=== PATIENT | female | born 1970 | race African-American/Black ===

== ENCOUNTER 2017-05-03 13:30 | Emergency (ER) | payer OTHER | END 2017-05-03 16:35 | disposition home or self-care (01) | LOC: D.ER 13:30 | DX: R51 Headache (principal); I10 Essential (primary) hypertension ==

== ENCOUNTER 2017-05-28 11:42 | Emergency (ER) | payer OTHER ==
[2017-05-28 12:17] LABS: BASOPHILS 0.2 % (0-2); EOSINOPHILS 0 % (0-7); HEMATOCRIT 38.9 % (36.0-48.0); HEMOGLOBIN 12.8 g/dL (12-16); IMMATURE GRANULOCYTES 0.2 % (0-5); LYMPHOCYTES 19.2 % (15-50); MCH 30.1 pg (26.0-34.0); MCHC 32.9 g/dL (31.0-37.0); MCV 91.5 fL (80.0-100.0); MEAN PLATELET VOLUME 10.3 fL (7.4-10.4); MONOCYTES 7.7 % (2-11); NEUTROPHILS 72.7 % (40-80); PLATELET COUNT 225 10x3/uL (130-400); RBC 4.25 10x6/uL (4.00-5.40); RDW 13.4 % (11.5-14.5); WBC 16.6 10x3/uL (4.8-10.8)
[2017-05-28 12:43] LABS: ALBUMIN 3.2 g/dL (3.4-5.0); ANION GAP 10.1 mmol/L (8-16); BILIRUBIN - TOTAL 1.47 mg/dL (0.2-1.3); CALCIUM 9.1 mg/dL (8.5-10.1); CARBON DIOXIDE 31.1 mmol/L (21.0-32.0); CREATININE - SERUM 1.5 mg/dL (0.6-1.3); POTASSIUM - SERUM 3.2 mmol/L (3.5-5.1); PROTEIN - SERUM 8.9 g/dL (6.4-8.2)
[2017-05-28 12:44] LABS: APPEARANCE HAZY (CLEAR); BILIRUBIN NEGATIVE (NEGATIVE); COLOR DK YELLOW (YELLOW); GLUCOSE NEGATIVE (NEGATIVE); KETONE NEGATIVE (NEGATIVE); LEUKOCYTE ESTERASE TRACE (NEGATIVE); NITRITE NEGATIVE (NEGATIVE); PROTEIN 1+ mg/dL (NEGATIVE); RED CELLS - URINE 0-5 /hpf (0-5); SPECIFIC GRAVITY 1.015 (1.005-1.020); WHITE CELLS - URINE 0-5 /hpf (0-5)
[2017-05-28 12:45] LABS: BACTERIA MODERATE /hpf (NONE SEEN); EPITHELIAL CELLS 0-5 /hpf (0-5); GRANULAR CAST 0-5 /lpf (NONE SEEN); HYALINE CAST 0-5 /lpf (NONE SEEN); MUCUS <1+ /lpf (NONE SEEN)
== END 2017-05-28 15:00 | disposition home or self-care (01) ==
LOC: D.ER 11:42
PROVIDERS: Emergency Medicine
DX: R19.7 Diarrhea, unspecified (principal); K52.9 Noninfective gastroenteritis and colitis, unspecified; R11.10 Vomiting, unspecified; F17.200 Nicotine dependence, unspecified, uncomplicated; I10 Essential (primary) hypertension

== ENCOUNTER 2017-06-30 23:00 | Emergency (ER) | payer OTHER ==
[2017-07-01 00:36] LABS: HEMATOCRIT 37.7 % (36.0-48.0); HEMOGLOBIN 12.6 g/dL (12-16); LYMPHOCYTES 13.1 % (15-50); MCH 29.6 pg (26.0-34.0); MCHC 33.4 g/dL (31.0-37.0); MCV 88.5 fL (80.0-100.0); MEAN PLATELET VOLUME 9.6 fL (7.4-10.4); NEUTROPHILS 84.1 % (40-80); RBC 4.26 10x6/uL (4.00-5.40); RDW 13.2 % (11.5-14.5); WBC 18.5 10x3/uL (4.8-10.8)
[2017-07-01 00:39] LABS: PLATELET COUNT 287 10x3/uL (130-400)
[2017-07-01 00:49] LABS: ALBUMIN 3.4 g/dL (3.4-5.0); ANION GAP 9.9 mmol/L (8-16); BILIRUBIN - TOTAL 0.98 mg/dL (0.2-1.3); CALCIUM 8.6 mg/dL (8.5-10.1); CARBON DIOXIDE 29.9 mmol/L (21.0-32.0); CREATININE - SERUM 1.2 mg/dL (0.6-1.3); POTASSIUM - SERUM 3.8 mmol/L (3.5-5.1); PROTEIN - SERUM 8.5 g/dL (6.4-8.2)
[2017-07-01 00:53] LABS: APPEARANCE CLEAR (CLEAR); COLOR YELLOW (YELLOW)
[2017-07-01 00:54] LABS: BILIRUBIN NEGATIVE (NEGATIVE); GLUCOSE NEGATIVE (NEGATIVE); KETONE NEGATIVE (NEGATIVE); LEUKOCYTE ESTERASE TRACE (NEGATIVE); NITRITE NEGATIVE (NEGATIVE); PROTEIN 2+ mg/dL (NEGATIVE); SPECIFIC GRAVITY 1.005 (1.005-1.020); UROBILINOGEN NORMAL (NORMAL)
[2017-07-01 00:55] LABS: BACTERIA FEW /hpf (NONE SEEN); EPITHELIAL CELLS 0-5 /hpf (0-5); RED CELLS - URINE 0-5 /hpf (0-5); WHITE CELLS - URINE 0-5 /hpf (0-5)
== END 2017-07-01 01:50 | disposition home or self-care (01) ==
LOC: D.ER 23:00
PROVIDERS: Physician Assistant
DX: R11.2 Nausea with vomiting, unspecified (principal); R51 Headache; I10 Essential (primary) hypertension

== ENCOUNTER → 2017-07-19 16:49 | Outpatient (CLI) | payer OTHER | END | disposition home or self-care (01) | LOC: D.RAD 16:49 | DX: K59.00 Constipation, unspecified (principal) ==

== ENCOUNTER 2018-02-12 17:06 | Emergency (ER) | payer OTHER ==
[2018-02-12 17:49] LABS: BASOPHILS 0.2 % (0-2); EOSINOPHILS 0.8 % (0-7); HEMOGLOBIN 12.4 g/dL (12-16); IMMATURE GRANULOCYTES 0.1 % (0-5); LYMPHOCYTES 26.5 % (15-50); MCH 30.5 pg (26.0-34.0); MCHC 32.6 g/dL (31.0-37.0); MCV 93.4 fL (80.0-100.0); MEAN PLATELET VOLUME 10.2 fL (7.4-10.4); MONOCYTES 8.6 % (2-11); NEUTROPHILS 63.8 % (40-80); PLATELET COUNT 231 10x3/uL (130-400); RBC 4.07 10x6/uL (4.00-5.40); RDW 13.1 % (11.5-14.5); WBC 8.5 10x3/uL (4.8-10.8)
[2018-02-12 17:59] LABS: APPEARANCE HAZY (CLEAR); COLOR YELLOW (YELLOW); NITRITE NEGATIVE (NEGATIVE)
[2018-02-12 18:00] LABS: BILIRUBIN NEGATIVE (NEGATIVE); GLUCOSE NEGATIVE (NEGATIVE); KETONE NEGATIVE (NEGATIVE); PROTEIN TRACE mg/dL (NEGATIVE); UROBILINOGEN NORMAL (NORMAL)
[2018-02-12 18:04] LABS: BACTERIA FEW /hpf (NONE SEEN); EPITHELIAL CELLS 0-5 /hpf (0-5); WHITE CELLS - URINE 0-5 /hpf (0-5)
[2018-02-12 18:05] LABS: ALBUMIN 3.5 g/dL (3.4-5.0); ANION GAP 11.8 mmol/L (8-16); BILIRUBIN - TOTAL 0.91 mg/dL (0.2-1.3); CALCIUM 8.9 mg/dL (8.5-10.1); CARBON DIOXIDE 26.9 mmol/L (21.0-32.0); CREATININE - SERUM 1.1 mg/dL (0.6-1.3); POTASSIUM - SERUM 3.7 mmol/L (3.5-5.1); PROTEIN - SERUM 8.6 g/dL (6.4-8.2)
== END 2018-02-12 19:35 | disposition home or self-care (01) ==
LOC: D.ER 17:06
PROVIDERS: Family Medicine
DX: J06.9 Acute upper respiratory infection, unspecified (principal); J20.9 Acute bronchitis, unspecified; I10 Essential (primary) hypertension

== ENCOUNTER 2018-07-13 10:43 | Outpatient (CLI) | payer OTHER ==
[~2018-07-13] VITALS: Ht 167.6 cm; Wt 143.2 kg
--- NOTE | ~2018-07-13 | OP ---
PATIENT NAME: HUSSEIN SOTO MEDICAL RECORD: [id number] :66 LOCATION:D.CAT ADMISSION DATE: SURGEON: LIBAN PINZON MD DATE OF OPERATION: 07/13/2018 PROCEDURES: Left heart catheterization, selective coronary angiography, plus renal arteriogram, initially right radial approach; however, switched to right femoral artery approach secondary to inability to engage coronary system. FINDINGS: Left ventriculography in 30-degree WILSON view: Hyperdynamic ventricle. Overall LV function 60% or better. CORONARY ANATOMY: LEFT MAIN: Left main is free of disease. LAD: Free of disease as is the diagonal system. CIRCUMFLEX: Free of disease in the marginal system. RIGHT CORONARY ARTERY: Dominant artery, gives rise to PDA, free of disease. DESCRIPTION OF PROCEDURE: The JR catheter was then replaced into the descending aorta. Selective renal arteriogram was performed. 1. The right renal artery was selectively engaged. This shows a smooth-walled vessel, free of significant disease. 2. The left renal artery was selectively engaged. It showed no evidence of significant stenosis. IMPRESSION: Normal renal arteriography. Normal coronary anatomy. TRANSINT:[id number] Voice Confirmation ID: [id number] DOCUMENT ID: [id number] LIBAN PINZON MD at 1449 CC: [id number] DICTATION DATE: 07/13/18 1403 BORDER MEASURER AND CUTTER: 07/13/18 1429 DEP CLI 07/13/18 [id number] [place] [address]
--- NOTE | ~2018-07-13 | HEMODYNAMI ---
PATIENT:HUSSEIN SOTO MEDICAL RECORD: [id number] : 66 LOCATION:DRAGHU ADMISSION DATE: 07/13/18 Generatedon:07/13/201814:04 Patient name: HUSSEIN SOTO Patient #: [id number] SSN: : 1970 Date of study: 07/13/2018 Page: Of Hemodynamic Procedure Report Patient Data Patient Demographics Procedure consent was obtained First Name: HUSSEIN Gender: Female Last Name: BRITTANY : 1970 Patient #: [id number] Age: 47 year(s) Race: Black Additional ID: [id number] Contact details Address: [place] [address] State: [place] City: [place] Zip code: [address] Past Medical History Allergies: No known allergies Admission Admission Data Admission Date: 07/13/2018 Admission Time: 10:43 Lab Results Lab Result Date: 07/13/2018 Lab Result Time: 0:00 Biochemistry Name Units Result Min Max BUN mg/dl 15 --(--*-)-- 7 18 Creatinine mg/dl 1 --(--*-)-- 0.6 1.3 CBC Name Units Result Min Max Hemoglobin g/dl 13 -*(----)-- 13.5 17.5 Procedure Procedure Types Cath Procedure Diagnostic Procedure [facility] w/Coronaries Sedation Charges Moderate Sedation up to 30 minutes Peripheral Cath Diagnostic Procedure Cath Peripheral Renal Arteriogram Procedure Description Procedure Date Procedure Date: 07/13/2018 Procedure Start Time: 13:25 Procedure End Time: 14:04 Procedure Staff Name Function Axel Duncan MD Performing Physician Cyn Lynn RT Monitor Hermila Gracia RT Scrub Susy Begum RN Nurse Harsh Pavon RN Merchandise Manager Procedure Data Cath Procedure Fluoroscopy Diagnostic fluoroscopy Total fluoroscopy Time: 10 time: 10 min min Diagnostic fluoroscopy Total fluoroscopy dose: dose: 1429 mGy 1429 mGy Contrast Material Contrast Material Type Amount (ml) Isovue 300 165 Entry Location Entry Primary Successful Side Size Upsize Upsize Entry Closure Succes sful Closure Location (Fr) 1 (Fr) 2 (Fr) Remarks Device Remarks Radial Right 6 Fr artery Short Femoral Right 5 Fr Exoseal artery Estimated blood loss: 5 ml Diagnostic catheters Device Type Used For End Catheter Placement DIAGNOSTIC [place] 110cm 5 Procedure Fr catheter (165218) DIAGNOSTIC AR MOD 5Fr Procedure Catheter ([id number]) DIAGNOSTIC JB3 4Fr Procedure catheter (367151) DIAGNOSTIC JL 5 5Fr Procedure catheter ([id number]) DIAGNOSTIC AR MOD 5Fr Procedure Catheter (327985C) DIAGNOSTIC Pigtail 5Fr Procedure catheter (838505H) Procedure Complications No complications Procedure Medications Medication Administration Route Dosage Oxygen etCO2 Nasal cannula 2 l/min Lidocaine 2% added to field 20 Heparin Flush Bag added to field 2 bags (1000units/500ml NS) 0.9% NaCl I.V. 100 ml/hr Versed I.V. 1 mg Fentanyl I.V. 50 mcg Radial Cocktail I.A. 1 syringe (Verapomil 2mg/Nitro 400mcg/Heparin 1500units) Versed I.V. 1 mg Fentanyl I.V. 50 mcg Lopressor I.V. 5 mg Versed I.V. 1 mg Fentanyl I.V. 50 mcg Vasotec 2.5 mg Versed I.V. 1 mg Fentanyl I.V. 50 mcg Lopressor I.V. 5 mg Lopressor I.V. 5 mg Hemodynamics Rest HGB: 13 (g/dl) Heart Rate: 70 (bpm) Pressure Samples Time Site Value (mmHg) Purpose Heart Use Rate(bpm) 13:51 LV 199/30,40 Snapshot 69 13:52 AO 190/130(159) Pullback 77 13:52 LV 164/12,18 Pullback 77 Gradients Valve Time Site 1 Site 2 Mean SEP/DFP Peak To Heart Use (mmHg) (sec/min) Peak Rate (mmHg) (bpm) Aortic 13:52 LV AO 0 77 164/12,18 190/130(159) Calculations Valve P-P Mean Valve Index Valve Source Name Gradient Area Flow (cm2) Aortic 0 0 Snapshots Pre Cath Intra NCS Post Cath Vital Signs Time Heart Resp SPO2 etCO2 NIBP (mmHg) Rhythm Pain Sedation Rate (ipm) (%) (mmHg) Status Level (bpm) 13:15:58 73 15 98 36.1 Aborted NSR 0 (11) 10(A) , No pain 13:16:51 74 14 100 40.6 223/155(219) NSR 0 (11) 10(A) , No pain 13:24:36 75 13 97 55 209/146(193) NSR 0 (11) 10(A) , No pain 13:29:07 80 41 97 45.9 184/133(166) NSR 0 (11) 9(A) , No pain 13:33:39 75 15 96 55 203/159(179) NSR 0 (11) 9(A) , No pain 13:38:16 75 15 98 47.4 214/144(203) NSR 0 (11) 9(A) , No pain 13:42:50 72 13 98 46.7 205/139(200) NSR 0 (11) 9(A) , No pain 13:51:04 78 12 95 60.9 182/132(180) NSR 0 (11) 9(A) , No pain 13:55:36 76 15 96 58 185/152(175) NSR 0 (11) 9(A) , No pain 14:00:06 75 18 97 54.9 201/144(183) NSR 0 (11) 10(A) , No pain 14:04:39 75 7 98 55.7 192/135(173) NSR 0 (11) 10(A) , No pain Medications Time Medication Route Dose Verified Delivered Reason Notes Effectiveness by by 13:20:20 Oxygen etCO2 2 l/min Axel Jain used for Nasal St Sonido Begum RN procedure cannula 13:20:27 Lidocaine 2% added 20ml Axel Reyna for local to vial [facility] anesthetic field MD LUKE 13:20:33 Heparin Flush added 2 bags Axel Reyna used for Bag to [facility] procedure (1000units/500ml field MD LUKE NS) 13:20:42 0.9% NaCl I.V. 100 Axel Jain Per ml/hr St Sonido Begum RN physician 13:21:01 Versed I.V. 1 mg Axel Pruittie for sedation St Sonido Begum RN, MD 13:21:09 Fentanyl I.V. 50 mcg Axel Jain for sedation St Sonido Begum RN, MD 13:25:40 Versed I.V. 1 mg Axel Pruittie for sedation St Sonido Begum RN, MD 13:25:43 Fentanyl I.V. 50 mcg Axel Buffie for sedation St Sonido Begum RN, MD 13:27:16 Radial Cocktail I.A. 1 Axel Buffie for (Verapomil syringe St Sonido Begum RN vasodilation 2mg/Nitro MD 400mcg/Heparin 1500units) 13:28:01 Lopressor I.V. [address] Sonido davis MD 13:34:00 Versed I.V. 1 mg Xael Buffie for sedation St Sonido Begum RN, MD 13:34:04 Fentanyl I.V. 50 mcg Axel Buffie for sedation St Sonido Begum RN, MD 13:39:49 Vasotec IV 2.5 mg Ax[address] Per [facility] Sonido davis MD 13:44:34 Versed I.V. 1 mg Axel Buffie for sedation St Sonido Begum RN, MD 13:44:39 Fentanyl I.V. 50 mcg Axel Buffie for sedation St Sonido Begum RN, MD 13:53:17 Lopressor I.V. 5 mg [address] Per [facility] Sonido davis MD 13:59:26 Lopressor I.V. 5 mg [address] Per [facility] Sonido davis MD Procedure Log Time Note 13:02:08 Harsh Pavon RN sent for patient. Start room use. 13:02:09 Time tracking: Regular hours (M-F 7:00 - 5:00) 13:02:13 Plan of Care:Hemodynamics will remain stable., Cardiac rhythm will remain stable., Comfort level will be maintained., Respiratory function will remain adequate., Patient/ family verbilizes understanding of procedure., Procedure tolerated without complication., Recovers from procedure without complications.. 13:02:14 Signed procedure consent form obtained from patient. 13:03:08 Patient allergic to No known allergies 13:04:38 Patient received from Pre/Post Procedure Room to CCL 2 Alert and oriented. Tansferred to table in Supine position. 13:04:39 Warm blankets applied, and gopi hugger turned on for patient comfort. 13:04:39 Correct patient and procedure confirmed by team. 13:04:39 ECG and BP/O2 sat monitors applied to patient. 13:15:27 Vital chart was started 13:15:33 Baseline sample Acquired. 13:15:41 Rhythm: sinus rhythm 13:15:42 Full Disclosure recording started 13:15:50 Pre-procedure instructions explained to patient. 13:15:50 Pre-op teaching completed and patient verbalized understanding. 13:15:52 Family in patients room. 13:16:07 Patient NPO since Midnight. 13:16:09 Is the patient allergic to Iodine/contrast media? No. 13:16:11 Is patient on blood thinner?No 13:16:12 Patient diabetic? No. 13:16:56 Patient not . Patient has had hysterectomy. 13:16:58 Previous problem with sedation/anesthesia? No ? 13:16:59 Snore? Yes 13:17:00 Sleep apnea? Yes 13:17:01 Deviated septum? No 13:17:01 Opens mouth fully? Yes 13:17:02 Sticks out tongue? Yes 13:17:04 Airway obstruction? No ? 13:17:11 Dentures? Yes PARTIAL OUT 13:17:14 Modified Arvind's test Ulnar < 7 seconds 13:17:17 Patient pain scale 0/10 ?. 13:17:21 IV patent on arrival in left hand with 0.9% NaCl at [facility]. 13:17:45 Lab Result : Creatinine 1 mg/dl 13:17:45 Lab Result : BUN 15 mg/dl 13:17:45 Lab Result : Hemoglobin 13 g/dl 13:17:48 Lab results completed and on chart. 13:17:50 Right Radial & Right Groin area was prepped with chlora-prep and draped in sterile fashion 13:17:52 Alarms reviewed by R. N. 13:17:52 Sharps counted by scrub and verified by R.N. 13:17:55 Use device set Radial Dx or PCI 13:17:56 ACIST Syringe (85431) opened to sterile field. 13:17:57 Bag Decanter (2002) opened to sterile field. 13:17:58 ACIST Hand Control (30763) opened to sterile field. 13:17:58 ACIST Manifold (60507) opened to sterile field. 13:17:59 Tegaderm 4 x 4 (1626W) opened to sterile field. 13:18:01 Medline Cath Pack ([id number]) opened to sterile field. 13:18:01 DIAGNOSTIC WIRE .035 260cm J wire (028639) opened to sterile field. 13:18:02 MBrace Wrist Support ([id number]) opened to sterile field. 13:18:03 SHEATH 6Fr Prelude Radial ([id number]) opened to sterile field. 13:18:42 Zero performed for pressure channel P1 13:18:49 --------ALL STOP TIME OUT------ 13:18:49 Final Timeout: patient, procedure, and site verified with staff and physician. All members of the team are in agreement. 13:18:50 Right Radial & Right Groin site verified by team. 13:18:53 Physical assessment completed. ASA score P 2 - A patient with mild systemic disease as per Axel Duncan MD. 13:18:56 Sedation plan: IV Moderate Sedation Medication:Versed, Fentanyl 13:20:20 Oxygen 2 l/min etCO2 Nasal cannula was administered by Susy Begum RN; used for procedure; 13:20:27 Lidocaine 2% 20ml vial added to field was administered by Axel Duncan MD; for local anesthetic; 13:20:33 Heparin Flush Bag (1000units/500ml NS) 2 bags added to field was administered by Axel Duncan MD; used for procedure; 13:20:42 0.9% NaCl 100 ml/hr I.V. was administered by Susy Begum RN; Per physician; 13:21:01 Versed 1 mg I.V. was administered by Susy Begum RN; for sedation; 13:21:09 Fentanyl 50 mcg I.V. was administered by Susy Begum RN; for sedation; 13:21:14 Zero performed for pressure channel P1 13:24:37 Procedure started. 13:24:54 H&P Date Dictated: 07/13/2018 Within 30 days and on chart., H&P Addendum completed by physician on day of procedure. (MUST COMPLETE FOR ALL OUTPATIENTS). 13:25:26 Local anesthetic to right radial artery with Lidocaine 2% by Axel Duncan MD.INITIAL ACCESS ONLY 13:25:40 Versed 1 mg I.V. was administered by Susy Begum RN; for sedation; 13:25:43 Fentanyl 50 mcg I.V. was administered by Susy Begum RN; for sedation; 13:26:58 A 6 Fr Short sheath was inserted into the Right Radial artery 13:27:05 A DIAGNOSTIC [place] 110cm 5 Fr catheter (389298) was advanced over the wire and used for Procedure. 13:27:16 Radial Cocktail (Verapomil 2mg/Nitro 400mcg/Heparin 1500units) 1 syringe I.A. was administered by Susy Begum RN; for vasodilation; 13:28:01 Lopressor 5 mg I.V. was administered by Susy Begum RN; Per physician; 13:29:37 UNABLE TO ENGAGE CORONARY 13:29:41 Catheter removed. 13:30:28 Zero performed for pressure channel P1 13:31:21 A DIAGNOSTIC AR MOD 5Fr Catheter (542161W) was advanced over the wire and used for Procedure. 13:32:16 RCA angiography performed. 13:32:31 Catheter exchanged over wire. 13:33:20 GUIDE 6FR EBU 3.75 catheter ([id number]) opened to sterile field. 13:33:45 6 Fr EBU 3.75 guide catheter was inserted over the wire 13:34:00 Versed 1 mg I.V. was administered by Susy Begum RN; for sedation; 13:34:04 Fentanyl 50 mcg I.V. was administered by Susy Begum RN; for sedation; 13:35:09 UNABLE TO ENGAGE LT.CORONARY 13:35:55 A DIAGNOSTIC JB3 4Fr catheter (895492) was advanced over the wire and used for Procedure. 13:36:42 Catheter removed. 13:37:28 UNABLE TO ENGAGE LT. CORONARY 13:37:39 Catheter removed. 13:38:20 GUIDE 6FR EBU 4.0 guide catheter ([id number]) opened to sterile field. 13:38:32 6 Fr EBU 4 guide catheter was inserted over the wire 13:39:49 Vasotec 2.5 mg IV was administered by Susy Begum RN; Per physician; 13:39:52 UNABLE TO ENAGE LT. CORONARY 13:40:02 Guide catheter removed. 13:40:13 CONTINUE TO GROIN APPROACH 13:40:25 SHEATH 5FR [place] (NBR190) opened to sterile field. 13:40:34 Local anesthetic to right femoral artery with Lidocaine 2% by Axel Duncan MD.ADDITIONAL ACCESS 13:41:25 A 5 Fr sheath was inserted into the Right Femoral artery 13:44:34 Versed 1 mg I.V. was administered by Susy Begum RN; for sedation; 13:44:39 Fentanyl 50 mcg I.V. was administered by Susy Begum RN; for sedation; 13:44:59 A DIAGNOSTIC JL 5 5Fr catheter (930960K) was advanced over the wire and used for Procedure. 13:45:22 LCA angiography performed. 13:45:42 Catheter removed. 13:46:26 A DIAGNOSTIC AR MOD 5Fr Catheter (578303V) was advanced over the wire and used for Procedure. 13:48:47 Left renal angiography performed. 13:50:04 Right renal angiography performed. 13:50:07 Catheter removed. 13:50:13 A DIAGNOSTIC Pigtail 5Fr catheter ([id number]) was advanced over the wire and used for Procedure. 13:50:43 LV gram done using WILSON 13:50:52 Injector settings: Ml/sec: 10, Volume: 20, 13:51:37 LV hemodynamics recorded. 13:52:06 EF : 55 % 13:52:08 Catheter removed. 13:52:20 EXOSEAL 5Fr (EX500) opened to sterile field. 13:52:25 TR BAND Standard ([id number]) opened to sterile field. 13:52:43 Sheath removed intact; hemostasis achieved with Exoseal to the Right Femoral artery. 13:53:05 Procedure ended.(Physican Out) 13:53:17 Lopressor 5 mg I.V. was administered by Susy Begum RN; Per physician; 13:54:02 Fluoroscopy time 10.00 minutes. 13:54:07 Fluoroscopy dose: 1429 mGy 13:54:07 Flurop Dose total: 1429 13:54:18 Contrast amount:Isovue 300 165ml. 13:54:19 Sharps counted by scrub and verified by R.N. 13:54:30 Post-op/insertion site Right Femoral artery dressed using a 4 x 4 and Tegaderm. 13:54:36 Post right femoral artery:stable, soft, clean and dry 13:55:06 Post-procedure physical assessment completed. ASA score P 2 - A patient with mild systemic disease as per Axel Duncan MD. 13:58:19 Post procedure rhythm: sinus rhythm 13:58:22 Estimated blood loss: 5 ml 13:58:23 Post procedure instruction explained to patient.Patient verbalizes understanding. 13:58:24 Patient needs reinforcement of post procedure teaching. 13:59:26 Lopressor 5 mg I.V. was administered by Susy Begum RN; Per physician; 14:00:08 Procedure type changed to Cath procedure, Diagnostic procedure, LHC, LHC w/Coronaries, Sedation Charges, Moderate Sedation up to 30 minutes, Peripheral Cath Diagnostic Procedure, Cath Peripheral, Renal Arteriogram 14:02:45 Procedure and supply charges have been captured, reviewed, submitted and are correct. 14:02:49 Procedure Complication : No complications 14:04:25 Vital chart was stopped 14:04:25 See physician's report for complete and final results. 14:04:27 Report given to Pre/Post Procedure Room. 14:04:30 Patient transfered to Pre/Post Procedure Room with Bed. 14:04:31 Procedure ended. 14:04:31 Full Disclosure recording stopped 14:04:35 End room use (Document Last) Device Usage Item Name Manufacture Quantity Catalog Number Hospital Part Current M inimal Lot# / Charge Number Stock Stock Serial# Code ACIST Syringe Acist 1 60210 916286 809183 720289 2 0 (83341) Medical Systems SofTech Bag Decanter Microtek 1 2001S 253864 54735 010594 5 (2001S) Medical Inc. ACIST Hand Acist 1 51845 566972 585326 991126 5 Control (64464) Medical Systems Inc ACIST Manifold Acist 1 98865 124015 060869 945806 5 (58587) Medical Systems Inc Tegaderm 4 x 4 3M 1 1626W 241472 981078 310054 5 (1626W) Medline Cath Cardinal 1 [id number] 496179 00129 403447 5 Pack Health ([id number]) DIAGNOSTIC WIRE St Jason 1 918491 368132 839096 107573 3 0 .035 260cm J wire (193641) MBrace Wrist Advanced 1 140-0250-00 448748 96658 322519 5 Support Vascular ([id number]) Dynamics SHEATH 6Fr Merit 1 [id number] 513955 414972 938737 5 Prelude Radial Medical ([id number]) DIAGNOSTIC Terumo 1 17-9735 836171 755722 942449 5 [place] 110cm 5 Fr catheter (289206) DIAGNOSTIC AR Cardinal 1 [id number] 966597 251531 992960 1 5 MOD 5Fr Health Catheter (332363P) GUIDE 6FR EBU Medtronic 1 [id number] 429018 16305 241600 1 3.75 catheter ([id number]) DIAGNOSTIC JB3 Cardinal 1 532-438 707239 979760 280120 5 4Fr catheter Health (215363) GUIDE 6FR EBU Medtronic 1 [id number] 446583 57194 524402 1 4.0 guide catheter ([id number]) SHEATH 5FR Terumo 1 FND697 920784 426232 277322 4 0 [place] (HRK274) DIAGNOSTIC JL 5 Cardinal 1 109499C 759087 512381 907682 5 5Fr catheter Health (249245U) DIAGNOSTIC Cardinal 1 [id number] 166019 699248 587277 5 Pigtail 5Fr Health catheter (794204C) EXOSEAL 5Fr Cardinal 1 EX500 042776 252562 981477 1 0 (EX500) Health TR BAND Terumo 1 [id number] 760090 360170 732061 4 0 Standard ([id number]) Signature Audit [place] Stage Time Signature Unsigned Intra-Procedure 07/13/2018 Cyn Lynn 2:04:50 PM RT(R) Signatures Monitor : Cyn Lynn Signature : RT Date : Time : [id number] [place] [address]
--- NOTE | ~2018-07-13 | HP ---
PATIENT: HUSSEIN SOTO MEDICAL RECORD: [id number] ACCOUNT: [id number] LOCATION:NILDA : 66 ADMISSION DATE: 07/13/18 HISTORY AND PHYSICAL EXAMINATION HISTORY OF PRESENT ILLNESS: A 47-year-old lady with history of hypertension, having intermittent chest tightness and pressure with exertion, found to have abnormal ECG with ST-T wave changes inferolaterally. She underwent Cardiolite testing showed reversible ischemia in the anterior segments brought to the labor operator for angiography, intervention based as needed. PAST MEDICAL HISTORY: Includes history of hypertension. MEDICATIONS: Include Carvedilol 6.25 every day, Crestor b.i.d., hydralazine 50 four times a day, lisinopril 40 every day, nifedipine 60 every day. PHYSICAL EXAMINATION: GENERAL: A pleasant middle-aged female in no acute distress. HEENT: Normocephalic and atraumatic. NECK: No JVD or bruit. HEART: Regular. LUNGS: Lynn clear. ABDOMEN: Soft and nontender. EXTREMITIES: Pulses 2+. No edema. ECG is abnormal as described above. PLAN: Diagnostic coronary angiography, intervention based on above. TRANSINT:[id number] Voice Confirmation ID: [id number] DOCUMENT ID: [id number] LIBAN PINZON MD at 1449 CC: [id number] DICTATION DATE: 07/13/18 1317 LIQUEFIED NATURAL GAS OPERATOR: 07/13/18 1347 DEP CLI 07/13/[address] [address]
[2018-07-13 11:35] VITALS: BP 203/129; Ht 167.6 cm; Wt 143.2 kg
[2018-07-13] MEDS ORDERED: NIFEDIPINE ER60 MG PO (11:43)
[2018-07-13] MEDS ORDERED: COREG6.25 MG PO (11:43)
[2018-07-13] MEDS ORDERED: HYDRALAZINE HCL50 MG PO (11:43)
[2018-07-13] MEDS ORDERED: ZESTRIL40 MG PO (11:44)
[2018-07-13] MEDS ORDERED: CELEXA40 MG PO (11:44)
[2018-07-13 11:50] LABS: BASOPHILS 0.3 % (0-2); EOSINOPHILS 1.7 % (0-7); HEMATOCRIT 39.1 % (36.0-48.0); IMMATURE GRANULOCYTES 0.2 % (0-5); LYMPHOCYTES 41.7 % (15-50); MCH 30.7 pg (26.0-34.0); MCHC 33.2 g/dL (31.0-37.0); MCV 92.2 fL (80.0-100.0); MEAN PLATELET VOLUME 10.5 fL (7.4-10.4); MONOCYTES 4.7 % (2-11); NEUTROPHILS 51.4 % (40-80); PLATELET COUNT 237 10x3/uL (130-400); RBC 4.24 10x6/uL (4.00-5.40); RDW 13.5 % (11.5-14.5); WBC 9.6 10x3/uL (4.8-10.8)
[2018-07-13 12:01] LABS: HCG SERUM NEGATIVE (NEGATIVE)
[2018-07-13 12:03] LABS: ANION GAP 7.1 mmol/L (8-16); CALCIUM 8.8 mg/dL (8.5-10.1); CARBON DIOXIDE 31.8 mmol/L (21.0-32.0); POTASSIUM - SERUM 3.9 mmol/L (3.5-5.1)
[2018-07-13] MEDS ORDERED: HYDROCHLOROTHIA50 MG PO (14:21)
== END 2018-07-13 17:18 ==
LOC: D.CATH 10:43
PROVIDERS: Internal Medicine Interventional Cardiology
DX: R07.89 Other chest pain (principal); I10 Essential (primary) hypertension; Z01.812 Encounter for preprocedural laboratory examination; Z79.899 Other long term (current) drug therapy

== ENCOUNTER 2018-09-05 08:07 | Emergency (ER) | payer OTHER ==
[~2018-09-05] VITALS: Ht 167.6 cm; Wt 143.2 kg
[~2018-09-05 08:07] MED LIST: CELEXA40 MG PO; COREG6.25 MG PO; HYDRALAZINE HCL50 MG PO; HYDROCHLOROTHIA50 MG PO; NIFEDIPINE ER60 MG PO; ZESTRIL40 MG PO
[2018-09-05 08:18] VITALS: Ht 167.6 cm; Wt 143.2 kg
[2018-09-05] MEDS ORDERED: NORCO 7.5/325 T1 TA1 PO (08:55)
[2018-09-05 10:14] VITALS: BP 186/103
== END 2018-09-05 10:15 | disposition home or self-care (01) ==
LOC: D.ER 08:07
DX: M54.16 Radiculopathy, lumbar region (principal); I10 Essential (primary) hypertension

== ENCOUNTER 2019-04-13 16:31 | Emergency (ER) | payer OTHER ==
[~2019-04-13] VITALS: Ht 167.6 cm; Wt 145.5 kg
[~2019-04-13 16:31] MED LIST changes: +NORCO 7.5/325 T1 TA1 PO
[2019-04-13 16:40] VITALS: Ht 167.6 cm; Wt 145.5 kg
[2019-04-13] MEDS ORDERED: PREVACID15 MG PO (16:49)
[2019-04-13 17:25] LABS: BASOPHILS 0.3 % (0-2); EOSINOPHILS 1.2 % (0-7); HEMATOCRIT 40.4 % (36.0-48.0); HEMOGLOBIN 13.4 g/dL (12-16); IMMATURE GRANULOCYTES 0.2 % (0-5); LYMPHOCYTES 38.2 % (15-50); MCH 30.3 pg (26.0-34.0); MCHC 33.2 g/dL (31.0-37.0); MCV 91.4 fL (80.0-100.0); MEAN PLATELET VOLUME 10.6 fL (7.4-10.4); MONOCYTES 5.2 % (2-11); NEUTROPHILS 54.9 % (40-80); PLATELET COUNT 250 10x3/uL (130-400); RBC 4.42 10x6/uL (4.00-5.40); RDW 13.4 % (11.5-14.5); WBC 10.5 10x3/uL (4.8-10.8)
[2019-04-13 17:54] LABS: ALBUMIN 3.6 g/dL (3.4-5.0); ALKALINE PHOSPHATASE 130 U/L (46-116); ALT (SGPT) 27 U/L (10-68); APTT 27.1 SECONDS (22.8-39.4); BILIRUBIN - TOTAL 0.62 mg/dL (0.2-1.3); CALC OSMOLALITY 283 mosm/kg (275-300); CALCIUM 9.1 mg/dL (8.5-10.1); CARBON DIOXIDE 28.9 mmol/L (21.0-32.0); CHLORIDE - SERUM 105 mmol/L (98-107); GLUCOSE 97 mg/dL (74-106); INR 1.01 (0.85-1.17); POTASSIUM - SERUM 3.8 mmol/L (3.5-5.1); PROTEIN - SERUM 8.3 g/dL (6.4-8.2); PROTIME 12.8 SECONDS (11.6-15.0); SODIUM 142 mmol/L (136-145); UREA NITROGEN 16 mg/dL (7-18); eGFR NON AFRICAN AMERICAN 62 mL/min (90-120)
[2019-04-13 18:05] LABS: CKMB 1.3 U/L (0.0-3.6); CREATINE KINASE 315 UL (21-215)
[2019-04-13 18:06] LABS: TROPONIN-I < 0.017 ng/mL (0.000-0.060)
[2019-04-13] MEDS ORDERED: NORVASC5 MG PO (18:38)
[2019-04-13 19:07] VITALS: BP 183/97
== END 2019-04-13 19:05 | disposition home or self-care (01) ==
LOC: D.ER 16:31
PROVIDERS: Family Medicine
DX: R51 Headache (principal); I10 Essential (primary) hypertension; R07.9 Chest pain, unspecified

== ENCOUNTER 2019-09-04 08:00 | Outpatient (CLI) | payer OTHER ==
[2019-04-13 16:40] VITALS: BMI 51.7
[~2019-09-04 08:00] MED LIST changes: +NORVASC5 MG PO; +PREVACID15 MG PO
== END 2019-09-04 23:59 | disposition home or self-care (01) ==
LOC: D.MAMMO 08:00
PROVIDERS: ATTEND Family Medicine
DX: Z12.31 Encounter for screening mammogram for malignant neoplasm of breast (principal)

== ENCOUNTER 2021-04-02 12:36 | Observation (INO) | payer OTHER ==
[~2021-04-02] VITALS: Ht 165.1 cm; Wt 143.2 kg
[2021-04-02] VITALS (8 sets, daily range): BP systolic 167–191; BP diastolic 95–129; Ht 165.1 cm; Wt 143.2 kg
--- NOTE | 2021-04-02 13:29 | NUR ---
PT STATES IS UNDER A TREMENDOUS AMOUNT OF STRESS AND TOOK A XANAX THIS AM THAT WASNT PRESCRIBED TO HER. PT ALSO STATES HAS BEEN PRESCRIBED BP MEDS IN THE PAST BUT STOPPED TAKING THEM APPOXIMATELY 1 YEAR AGO.
[2021-04-02 13:36] LABS: BASOPHILS 0.3 % (0-2); EOSINOPHILS 1.2 % (0-7); HEMATOCRIT 41.2 % (36.0-48.0); HEMOGLOBIN 13.3 g/dL (12-16); IMMATURE GRANULOCYTES 0.1 % (0-5); LYMPHOCYTE ABS# 3.17 10x3/uL (1.18-3.74); LYMPHOCYTES 33.7 % (15-50); MCHC 32.3 g/dL (31.0-37.0); MCV 92.8 fL (80.0-100.0); MEAN PLATELET VOLUME 10.3 fL (7.4-10.4); MONOCYTES 5.4 % (2-11); NEUTROPHIL ABS# 5.58 10x3/uL (1.56-6.13); NEUTROPHILS 59.3 % (40-80); PLATELET COUNT 254 10x3/uL (130-400); RBC 4.44 10x6/uL (4.00-5.40); WBC 9.4 10x3/uL (4.8-10.8)
[2021-04-02 13:43] LABS: CALC OSMOLALITY 278 mosm/kg (275-300); CALCIUM 9.6 mg/dL (8.5-10.1); CARBON DIOXIDE 30.4 mmol/L (21.0-32.0); CHLORIDE - SERUM 102 mmol/L (98-107); CREATININE - SERUM 1.2 mg/dL (0.6-1.3); GLUCOSE 105 mg/dL (74-106); POTASSIUM - SERUM 3.5 mmol/L (3.5-5.1); SODIUM 139 mmol/L (136-145); UREA NITROGEN 16 mg/dL (7-18); eGFR NON AFRICAN AMERICAN 50 mL/min (90-120)
[2021-04-02 13:49] LABS: APTT 27.1 SECONDS (22.8-39.4); INR 1.12 (0.85-1.17); PROTIME 13.3 SECONDS (11.6-15.0)
[2021-04-02 14:00] LABS: ALBUMIN 3.4 g/dL (3.4-5.0); ALKALINE PHOSPHATASE 119 U/L (30-120); ALT (SGPT) 23 U/L (10-68); BILIRUBIN - TOTAL 0.67 mg/dL (0.2-1.3); CKMB 0.9 U/L (0.0-3.6); CREATINE KINASE 211 UL (21-215); MAGNESIUM - SERUM 2.2 mg/dL (1.8-2.4); PROTEIN - SERUM 8.5 g/dL (6.4-8.2); TROPONIN-I < 0.017 ng/mL (0.000-0.060)
--- NOTE | 2021-04-02 17:54 | NUR ---
PATIENT TO ROOM VIA WHEELCHAIR. AMBULATORY TO BED AD PHI. DENIES NEEDS AT THIS TIME. BED LOW POSITION, CALL LIGHT IN REACH. ORIENTED TO THE ROOM AND BATHROOM. DENIES FURTHER NEEDS AT THIS TIME. WILL CONTINUE TO MONITOR.
[2021-04-02 19:24] LABS: CKMB 0.9 U/L (0.0-3.6); CREATINE KINASE 188 UL (21-215)
[2021-04-02 19:26] LABS: TROPONIN-I < 0.017 ng/mL (0.000-0.060)
--- NOTE | 2021-04-02 19:33 | NUR ---
RECEIVED BEDSIDE REPORT. PIV TO LEFT HAND, PATENT AND INFUSING, NO REDNESS OR SWELLING. TELEMETRY IN PLACE 78 SR. PT ABLE TO AMBULATE ASD PHI. EDUCATED PT ON CL AND NNEDS, VERBALIZED UNDERSTANDING. BED LOW, CL IN REACH.
[2021-04-03] VITALS (7 sets, daily range): BP systolic 150–187; BP diastolic 68–107
--- NOTE | 2021-04-03 00:15 | NUR ---
CHARGE NURSE SPOKE WITH GM DAVIS ABOUT ELEVATED BP, TELEPHONE ORDER INITIATED. WILL CONTINUE TO MONITOR.
--- NOTE | 2021-04-03 01:35 | NUR ---
PT BP 153/90, WILL CONTINUE Q1H BP CHECKS.
[2021-04-03 01:49] LABS: CKMB 0.8 U/L (0.0-3.6); CREATINE KINASE 151 UL (21-215); TROPONIN-I < 0.017 ng/mL (0.000-0.060)
[2021-04-03 07:26] LABS: ALBUMIN 3.5 g/dL (3.4-5.0); ALKALINE PHOSPHATASE 123 U/L (30-120); ALT (SGPT) 27 U/L (10-68); BILIRUBIN - TOTAL 0.88 mg/dL (0.2-1.3); CALC OSMOLALITY 280 mosm/kg (275-300); CALCIUM 9.5 mg/dL (8.5-10.1); CARBON DIOXIDE 27.9 mmol/L (21.0-32.0); CHLORIDE - SERUM 105 mmol/L (98-107); CKMB 0.8 U/L (0.0-3.6); CREATINE KINASE 141 UL (21-215); GLUCOSE 121 mg/dL (74-106); POTASSIUM - SERUM 3.7 mmol/L (3.5-5.1); PROTEIN - SERUM 8.6 g/dL (6.4-8.2); SODIUM 140 mmol/L (136-145); TROPONIN-I < 0.017 ng/mL (0.000-0.060); UREA NITROGEN 15 mg/dL (7-18); eGFR NON AFRICAN AMERICAN 62 mL/min (90-120)
[2021-04-03 07:29] LABS: BASOPHILS 0.2 % (0-2); EOSINOPHILS 0.9 % (0-7); HEMATOCRIT 41.4 % (36.0-48.0); HEMOGLOBIN 13.5 g/dL (12-16); IMMATURE GRANULOCYTES 0.2 % (0-5); LYMPHOCYTE ABS# 5.86 10x3/uL (1.18-3.74); LYMPHOCYTES 45.6 % (15-50); MCH 30.1 pg (26.0-34.0); MCHC 32.6 g/dL (31.0-37.0); MCV 92.2 fL (80.0-100.0); MEAN PLATELET VOLUME 10.5 fL (7.4-10.4); NEUTROPHIL ABS# 6.31 10x3/uL (1.56-6.13); NEUTROPHILS 49.1 % (40-80); RBC 4.49 10x6/uL (4.00-5.40); RDW 13.3 % (11.5-14.5)
--- NOTE | 2021-04-03 07:35 | NUR ---
RECIEVED BEDSIDE REPORT. PATIENT SLEEPING. AROUSES TO VOICE. DENIES NEEDS AT THIS TIME. BED LOW POSITION, CALL LIGHT IN REACH. FREE FROM SIGNS OF DISTRESS. WILL CONTINUE TO MONITOR.
[2021-04-03 08:16] LABS: PLATELET COUNT 310 10x3/uL (130-400); WBC 12.8 10x3/uL (4.8-10.8)
[2021-04-03] MEDS ORDERED: NORVASC5 MG PO (12:15)
[2021-04-03] MEDS ORDERED: LISINOPRIL10 MG PO (12:15)
[2021-04-03] MEDS ORDERED: HCTZ25 MG PO (12:15)
--- NOTE | 2021-04-03 15:00 | NUR ---
DISCHARGE PAPERS COMPLETE. IV CATH REMOVED, TELEMETRY REMOVED. NO FURTHER QUESTIONS. WAITING ON TRANSPORT TO GET HERE.
--- NOTE | 2021-04-03 15:06 | NUR ---
LEFT UNIT VIA WHEELCHAIR TO HOME AT THIS TIME.
== END 2021-04-03 15:09 | disposition home or self-care (01) ==
LOC: D.ER 12:36 → D.MS 16:04 → OBSVTIME 04-03 15:00 → D.MS 04-03 15:09
PROVIDERS: Family Medicine; ADMIT Emergency Medicine; ATTEND Emergency Medicine
DX: R42 Dizziness and giddiness (principal); I10 Essential (primary) hypertension; R55 Syncope and collapse; G92 Toxic encephalopathy; E66.01 Morbid (severe) obesity due to excess calories; K21.9 Gastro-esophageal reflux disease without esophagitis; F32.9 Major depressive disorder, single episode, unspecified; G47.33 Obstructive sleep apnea (adult) (pediatric); R07.9 Chest pain, unspecified; Z68.43 Body mass index [BMI] 50.0-59.9, adult

== ENCOUNTER 2021-04-05 08:22 | Emergency (ER) | payer OTHER ==
[~2021-04-05] VITALS: Ht 165.1 cm; Wt 142.9 kg
[~2021-04-05 08:22] MED LIST changes: +HCTZ25 MG PO; +LISINOPRIL10 MG PO
[2021-04-05 08:26] VITALS: Ht 165.1 cm; Wt 142.9 kg
[2021-04-05 08:56] LABS: BASOPHILS 0.3 % (0-2); EOSINOPHILS 1.2 % (0-7); HEMATOCRIT 41.7 % (36.0-48.0); HEMOGLOBIN 13.6 g/dL (12-16); IMMATURE GRANULOCYTES 0.2 % (0-5); LYMPHOCYTE ABS# 3.97 10x3/uL (1.18-3.74); LYMPHOCYTES 39.8 % (15-50); MCH 30.3 pg (26.0-34.0); MCHC 32.6 g/dL (31.0-37.0); MCV 92.9 fL (80.0-100.0); MEAN PLATELET VOLUME 10.3 fL (7.4-10.4); MONOCYTES 4.8 % (2-11); NEUTROPHIL ABS# 5.35 10x3/uL (1.56-6.13); NEUTROPHILS 53.7 % (40-80); PLATELET COUNT 282 10x3/uL (130-400); RBC 4.49 10x6/uL (4.00-5.40); RDW 13.2 % (11.5-14.5)
[2021-04-05 09:00] LABS: APTT 27.9 SECONDS (22.8-39.4); CALC OSMOLALITY 279 mosm/kg (275-300); CALCIUM 9.3 mg/dL (8.5-10.1); CARBON DIOXIDE 29.7 mmol/L (21.0-32.0); CHLORIDE - SERUM 102 mmol/L (98-107); CREATININE - SERUM 1.3 mg/dL (0.6-1.3); GLUCOSE 114 mg/dL (74-106); INR 1.07 (0.85-1.17); POTASSIUM - SERUM 3.3 mmol/L (3.5-5.1); PROTIME 12.9 SECONDS (11.6-15.0); SODIUM 139 mmol/L (136-145); UREA NITROGEN 14 mg/dL (7-18); eGFR NON AFRICAN AMERICAN 46 mL/min (90-120)
[2021-04-05 09:17] LABS: ALBUMIN 3.4 g/dL (3.4-5.0); ALKALINE PHOSPHATASE 128 U/L (30-120); ALT (SGPT) 24 U/L (10-68); BILIRUBIN - TOTAL 0.63 mg/dL (0.2-1.3); CKMB 1.1 U/L (0.0-3.6); CREATINE KINASE 152 UL (21-215); PROTEIN - SERUM 8.7 g/dL (6.4-8.2); TROPONIN-I < 0.017 ng/mL (0.000-0.060)
[2021-04-05] MEDS ORDERED: LISINOPRIL-HCT1 EAC8 PO (09:38)
[2021-04-05 09:47] VITALS: BP 156/86
== END 2021-04-05 09:47 | disposition home or self-care (01) ==
LOC: D.ER 08:22
PROVIDERS: Family Medicine
DX: I10 Essential (primary) hypertension (principal); K21.9 Gastro-esophageal reflux disease without esophagitis